=== PATIENT | female | born 1940 | race Caucasian/White ===

== ENCOUNTER 2024-08-01 09:06 | Outpatient (RCR) | payer MEDICARE | END 2024-08-15 | disposition home or self-care (01) | LOC: PT | DX: M54.50 Low back pain, unspecified (principal); R53.1 Weakness; Z91.81 History of falling ==

== ENCOUNTER → 2024-09-26 | Outpatient (CLI) | payer MEDICARE ==
[~2024-09-26] VITALS: Ht 160 cm; Wt 60.0 kg
[~2024-09-26] MED LIST: Denosumab 60 MG/ML SYRINGE SQ ONE
[2024-09-26 15:59] VITALS: BP 187/75
== END ==
LOC: AMSURD 15:30
DX: M81.0 Age-related osteoporosis without current pathological fracture (principal)
CPT/HCPCS: J0897

== ENCOUNTER → 2024-10-14 | Outpatient (CLI) | payer MEDICARE ==
[2024-10-14 15:22] LABS: BASO # 0.02 K/mm3 (0.02-0.10); EOS # 0.18 K/mm3 (0.04-0.40); EOS % 3.3 % (1.0-5.0); HEMATOCRIT 40.6 % (37.0-47.0); HEMOGLOBIN 13.4 g/dL (12.5-16.0); LYMPH# 1.01 K/mm3 (1.50-4.00); MEAN CELL VOLUME 97 fl (78-100); MEAN CORPUSCULAR HEMOGLOBIN 32 pg (27-31); MEAN CORPUSCULAR HGB CONC 33 g/dL (33-37); MEAN PLATELET VOLUME 9.8 fl (7.4-10.4); MONO # 0.41 K/mm3 (0.20-0.80); NEU # 3.86 K/mm3 (1.40-6.50); PLATELET COUNT 211 K/mm3 (130-400); RED BLOOD COUNT 4.18 M/mm3 (4.10-5.30); RED CELL DISTRIBUTION WIDTH 12.7 % (11.5-14.5); WHITE BLOOD COUNT 5.5 K/mm3 (4.8-10.8)
[2024-10-14 16:30] LABS: MAGNESIUM 2.08 mg/dL (1.60-2.60)
[2024-10-14 17:32] LABS: ALBUMIN 4.1 g/dL (3.4-4.8)
[2024-10-14 17:33] LABS: CALCIUM 9.7 mg/dL (8.3-10.5)
[2024-10-14 17:34] LABS: TOTAL PROTEIN 6.8 g/dL (6.2-8.1)
[2024-10-14 17:36] LABS: TOTAL BILIRUBIN 0.4 mg/dL (0.2-1.2)
== END ==
LOC: LAB 15:02
PROVIDERS: Internal Medicine
DX: M81.0 Age-related osteoporosis without current pathological fracture (principal); E78.2 Mixed hyperlipidemia; K90.9 Intestinal malabsorption, unspecified

== ENCOUNTER → 2024-10-31 | Outpatient (CLI) | payer MEDICARE | LOC: CARDREHAB 09:25 | DX: G47.19 Other hypersomnia (principal) | CPT/HCPCS: G0399 ==